=== PATIENT | male | born 1940 | race American Indian/Alaskan Native ===

== ENCOUNTER 2016-12-11 06:31 | Inpatient (IN) | payer MEDICARE ==
[2016-12-11 07:49] LABS: Basophils % (Auto) 0.4 % (0.0-1.8); Eosinophils % (Auto) 1.3 % (0.0-4.3); Hemoglobin 12.6 gm/dl (11.8-15.2); Mean Corpuscular HGB Conc 32 % (32-34); Mean Corpuscular Volume 74 fl (84-94); Platelet Count 139 K/mm3 (140-440); Red Cell Distribution Width 14.7 % (13.2-15.2); White Blood Count 4.6 K/mm3 (4.5-11.0)
[2016-12-11 08:06] LABS: Anion Gap 16 mmol/L; BUN/Creatinine Ratio 26.25; Blood Urea Nitrogen 21 mg/dL (9-20); Calcium 9.3 mg/dL (8.4-10.2); Carbon Dioxide 27 mmol/L (22-30); Chloride 101.1 mmol/L (98-107); Glucose 93 mg/dL (75-100); Potassium 4.2 mmol/L (3.6-5.0); Sodium 140 mmol/L (137-145)
[2016-12-11 08:14] LABS: Mean Corpuscular Hemoglobin 23 pg (28-32)
--- NOTE | 2016-12-11 11:19 | Admit Criteria Form ---
Admission Criteria Documentation: CHEST PAIN Clinical Indications for Admission to Inpatient Care (Place 'X' for any and all applicable criteria): Admission is indicated for chest pain and ANY ONE of the following(1)(2)(3)(4)(5 ): [ ]I. Angina with acute coronary syndrome (Also use Myocardial Infarction or Angina guideline) [ ]II. Hemodynamic instability [ ]III. Angina needing acute intervention as indicated by ALL of the following( 11)(12): [ ]a) Unstable angina is present as indicated by angina that is ANY ONE of the following: [ ]i) New onset [ ]ii) Nocturnal [ ]iii) Prolonged at rest [ ]iv) Progressive [ ]b) Angina warrants acute intervention as indicated by ANY ONE of the following: [ ]i) Recurrent angina (e.g, not responding as previously to treatment) [ ]ii) Angina at rest or with low-level activities despite initial medical therapy [ ]iii) New or presumably new ST-segment depression on ECG [ ]iv) Signs or symptoms of heart failure (eg, dyspnea, pulmonary edema) [ ]v) New or worsening mitral regurgitation [ ]vi) Hemodynamic instability [ ]vii) Dangerous arrhythmia (eg, sustained ventricular tachycardia) [ ]viii) History of percutaneous coronary intervention within 6 months [ ]ix) History of coronary artery bypass graft surgery [ ]x) SHILA risk score of 2 or greater[A] [ ]xi) History of Diabetes(14) [ ]xii) High-risk cardiac ischemia findings on noninvasive testing (e.g, echocardiogram, treadmill testing, nuclear scan) [ ]xiii) Chronic renal insufficiency (ie, estimated GFR less than 60 mL/min/1.732m) [ ]xiv) Left ventricular ejection fraction less than 40% [ ]IV. Evidence of [place] (eg, cardiac biomarkers positive, ST-segment elevation on ECG) also use Myocardial Infarction Criteria Form. [ ]V. Pulmonary edema [ ]. Respiratory distress [ ]VII. Chest pain indicative of serious diagnosis other than coronary artery disease (eg, aortic dissection) [ ]VIII. Contraindications and/or Inappropriate clinical situations for Observational Care in patients with Chest Pain, when ANY ONE of the following is required: [ ]a) Patient with risk factor for pulmonary embolism, acute coronary syndrome and myocardial infarction (18) [ ]b) Patient with Pulmonary embolism require an average LOS of 4.3 days, therefore emergency department observation management is inappropriate 18,23 [ ]c) Painful condition/s in the elderly, have the highest rate of recidivism after emergency department observation management (10.8%) 20,21,22 [ ]d) Elevated cardiac biomarker requires intensive and exhaustive care (19) [X ]IX. General contraindications and/or Inappropriate clinical situations for Observational Care in patients with Chest Pain, when ANY ONE of the following is required: [X ]a) Prediction of prolongation of LOS based on ANY ONE of the following may be considered as a contraindication for observational care 2, 3, 4, 5, 6, 7, 8, 9, 10, 11 [X ]i) Age > 65 yrs. [ ]ii) Patient arriving by ambulance [ ]iii) Patient with high acuity [ ]iv) Patient requiring vital sign monitoring [ ]v) Patient on IV medication [ ]b) Systolic blood pressures 180mmHg 3,12 [ ]c) Patient with altered mental status including delirium and other alteration of consciousness, (3) [ ]d) Patient whose discharge disposition will be to a assisted home or rehabilitation home should not be managed in Emergency Department Observation Unit. CMS rule requires 3 days hospital stay before such placement. 3,13 [ ]e) Patient with failure to thrive due to broad array of etiologies 3,16,17 [ ]f) Inability to ambulate 3,14 Extended stay beyond goal length of stay may be needed for (1)(28): [ ]a) Specific condition diagnosed after evaluation (eg, pulmonary embolism, aortic dissection) [ ]b) Unstable angina [ ]c) Continued suspicion of acute coronary syndrome with inability to complete needed cardiac evaluation (eg, patient clinically unable to undergo stress testing) [ ]d) Myocardial infarction (Contents from ANGINA and CHEST PAIN clinical indications for admission to inpatient care have been integrated in this form) The original [facility] content created by [employer] has been revised. The portions of the content which have been revised are identified through the use of italic text or in bold, and [facility] [employer] has neither reviewed nor approved the modified material. All other unmodified content is copyright [facility]. Please see references footnoted in the original [facility] edition 2016 Admission Criteria Met: Yes
--- NOTE | 2016-12-11 15:14 | Emergency Department Report ---
ED Chest Pain HPI - General Chief Complaint: Chest Pain Stated Complaint: LEFT SIDE PAIN Time Seen by Provider: 12/11/16 15:12 Source: patient Mode of arrival: Ambulatory Limitations: No Limitations - History of Present Illness Initial Comments: Patient states that since his 2 weeks ago he's been having chest pain. He states have a dull ache in the left pectoral area. He also has some pain in the shoulder. The shoulder pain is definitely worse with abduction shoulder. However he states that he has a dull ache in his pectoral area without movement. The chest pain does not radiate to the shoulder or neck. He denies associated symptoms. He denies pleuritic or exertional pain. He states that many years ago he was admitted to the hospital for chest pain. Did not have a cardiac catheterization. He carries no cardiac diagnosis. He has a history of hypothyroidism and dyslipidemia. He did refers some paresthesia or numbness of his left fingers which is not currently present. MD Complaint: chest pain -: week(s) Onset: during rest Pain Location: left chest Pain Radiation: none Severity: moderate Quality: dull Consistency: intermittent Improves With: nothing Worsens With: movement (shoulder pain increases with movement but chest is not sore and doesn't change with movement.) Context: other ( of the spouse) re: denies: nausea, vomting, diaphoresis, dyspnea, sense of impending doom Other Symptoms: denies: cough, fever, syncope Treatments Prior to Arrival: none Aspirin use within the Past 7 Days: (0) No - Related Data Home Medications Medication Instructions Recorded Confirmed Last Taken Acetaminophen 500 mg PO DAILY 12/11/16 12/11/16 Unknown AtorvaSTATin 80 mg PO HS 12/11/16 12/11/16 Unknown Levothyroxine 0.1 mg PO DAILY 12/11/16 12/11/16 Unknown Allergies Allergy/AdvReac Type Severity Reaction Status Date / Time No Known Allergies Allergy Unverified 02/25/14 04:21 SHILA score - Shila Score Age > 65: (1) Yes Aspirin use within the Past 7 Days: (0) No 3 or more CAD Risk Factors: (1) Yes 2 or more Angina events in past 24 hrs: (0) No Known CAD with more than 50% Stenosis: (0) No Elevated Cardiac Markers: (0) No ST Deviation Greater than 0.5mm: (0) No SHILA Score: 2 ED Review of Systems ROS: Stated complaint: LEFT SIDE PAIN Other details as noted in HPI Constitutional: denies: chills, fever Eyes: denies: eye pain, eye discharge, vision change ENT: denies: ear pain, throat pain Respiratory: denies: cough, shortness of breath, wheezing Cardiovascular: chest pain. denies: palpitations Endocrine: no symptoms reported Gastrointestinal: denies: abdominal pain, nausea, diarrhea Genitourinary: denies: urgency, dysuria Musculoskeletal: as per HPI. denies: back pain, joint swelling, arthralgia Skin: denies: rash, lesions Neurological: denies: headache, weakness, paresthesias Psychiatric: denies: anxiety, depression Hematological/Lymphatic: denies: easy bleeding, easy bruising ED Past Medical Hx - Past Medical History Hx Arthritis: Yes Additional medical history: HYPOTHYROID, CHOLESTEROL, - Surgical History Hx Appendectomy: Yes Additional Surgical History: BILATERAL knee surgery, HEMMORHOIDECTOMY, - Social History Smoking Status: Never Smoker Substance Use Type: None - Medications Home Medications: Home Medications Medication Instructions Recorded Confirmed Last Taken Type Acetaminophen 500 mg PO DAILY 12/11/16 12/11/16 Unknown History AtorvaSTATin 80 mg PO HS 12/11/16 12/11/16 Unknown History Levothyroxine 0.1 mg PO DAILY 12/11/16 12/11/16 Unknown History ED Physical Exam - General Limitations: No Limitations General appearance: alert, in no apparent distress - Head Head exam: Present: atraumatic, normocephalic - Eye Eye exam: Present: normal appearance. Absent: scleral icterus - ENT ENT exam: Present: mucous membranes moist - Neck Neck exam: Present: normal inspection. Absent: tenderness, meningismus - Respiratory Respiratory exam: Present: normal lung sounds bilaterally. Absent: respiratory distress, chest wall tenderness - Cardiovascular Cardiovascular Exam: Present: regular rate, normal rhythm. Absent: systolic murmur, diastolic murmur, rubs, gallop - GI/Abdominal GI/Abdominal exam: Present: soft, normal bowel sounds. Absent: distended, tenderness, guarding, rebound, rigid - Rectal Rectal exam: Present: deferred - Extremities Exam Extremities exam: Present: other (hesitation to abduction as well as perhaps some discomfort over the subacromial bursa of the left shoulder. The true shoulder joint is not inflamed. External and internal rotation was essentially normal) - Back Exam Back exam: Present: normal inspection - Neurological Exam Neurological exam: Present: alert, oriented X3 - Psychiatric Psychiatric exam: Present: normal affect, normal mood - Skin Skin exam: Present: warm, dry, intact, normal color. Absent: rash ED Course Vital Signs 12/11/16 06:48 Temperature 98.3 F Pulse Rate 54 L Respiratory 16 Rate Blood Pressure 141/89 Blood Pressure 141/89 [Left] O2 Sat by Pulse 100 Oximetry - Reevaluation(s) Reevaluation #1: Status with Dr. Deng and admitted to the hospitalist service/telemetry. X- rays are pending. 12/11/16 16:03 ED Medical Decision Making - Lab Data Result diagrams: 12/11/16 07:04 12/11/16 07:04 Laboratory Results - last 24 hr 12/11/16 12/11/16 12/11/16 07:04 07:04 09:36 WBC 4.6 RBC 5.40 H Hgb 12.6 Hct 40.0 MCV 74 L MCH 23 L MCHC 32 RDW 14.7 Plt Count 139 L Lymph % (Auto) 33.8 Coke % (Auto) 10.2 H Eos % (Auto) 1.3 Baso % (Auto) 0.4 Lymph # 1.6 Coke # 0.5 Eos # 0.1 Baso # 0.0 Seg Neutrophils % 54.3 Seg Neutrophils # 2.5 Sodium 140 Potassium 4.2 Chloride 101.1 Carbon Dioxide 27 Anion Gap 16 BUN 21 H Creatinine 0.8 Estimated GFR > 60 BUN/Creatinine Ratio 26.25 Glucose 93 Calcium 9.3 Troponin T < 0.010 < 0.010 - EKG Data -: EKG Interpreted by Me EKG shows normal: sinus rhythm, axis, intervals, QRS complexes, ST-T waves Rate: bradycardia - EKG Data Interpretation: nonspecific ST-T wave lucinda - Radiology Data Radiology results: pending Critical care attestation.: If time is entered above; I have spent that time in minutes in the direct care of this critically ill patient, excluding procedure time. ED Disposition Clinical Impression: Chest pain at rest, Bursitis of shoulder, left, Sinus bradycardia Disposition: OP ADMITTED IP TO THIS HOSP Is pt being admited?: Yes Does the pt Need Aspirin: Yes Condition: Stable Instructions: Chest Pain (ED) Referrals: DR MARION [Other] - 3-5 Days Time of Disposition: 16:05
[2016-12-11] MEDS ORDERED: ACETAMINOPHEN PO PRN (16:00)
[2016-12-11] MEDS ORDERED: SODIUM CHLORIDE FLUSH SYRINGE 10 ML IV PRN (16:02)
[2016-12-11] MEDS ORDERED: MORPHINE IV PRN (16:02)
[2016-12-11] MEDS ORDERED: TYLENOL PO PRN (16:23)
--- NOTE | 2016-12-11 16:35 | XRay Report ---
PA and lateral chest: Chest pain There is thoracic spondylosis on the right spine. The lungs are clear. The aorta is slightly tortuous with normal sized heart. No vascular congestion. Impression: No acute findings.
--- NOTE | 2016-12-11 16:38 | XRay Report ---
Left shoulder: Pain. There is some question of a small spur involving the medial articular surface of the humerus head. This area is not optimally visualized. With this exception the bones and joints appear unremarkable. There is good preservation of the subacromial space. Faint calcification may be present in the soft tissues of the proximal shaft on the medial side. There is also some question of calcification at the bicipital groove. No other findings. Impressions: Questionable mild soft tissue calcification unrelated to the rotator cuff. Questionable inferior articular spur of the humerus head.
--- NOTE | 2016-12-11 18:15 | History and Physical Report ---
History of Present Illness Date of examination: 12/11/16 Chief complaint: Left chest and shoulder pain History of present illness: 76-year-old -Indian male with past medical history significant for hyperlipidemia, hypo-thyroidism presented to the emergency department complaining of chest pain for the last 3 weeks. Patient is dilated, 6-8 out of 10 in intensity, with radiation to the left arm, shoulder movement exacerbates the pain, no alleviating factors. No shortness of breath, diaphoresis, palpitation, nausea, vomiting. REVIEW OF SYSTEMS: GENERAL: no weight change, no fatigue, no fever HEAD: no head ache EYES: no blurry vision, no acute visual loss EARS: no hearing loss, no discharge, no earache NOSE: no stuffiness, no sneezing, no discharge MOUTH, THROAT AND NECK: no bleeding gums, no sore throat, no swollen neck CARDIAC: no palpitations, no dyspnea on exertion, no orthopnea, no PND, no edema ,+chest pain RESPIRATORY: no shortness of breath, no wheeze, no cough, no sputum, no hemoptysis, no asthma GI: no decreased appetite, no nausea, no vomiting, no dysphagia, no diarrhea, no constipation, no abdominal pain URINARY: no change in frequency, no urgency, no polyuria, no hematuria, no incontinence MUSCULOSKELETAL: no muscle weakness, left shoulder pain, no joint stiffness NEUROLOGIC: no loss of sensation/numbness, no tingling, no tremors, no weakness/ paralysis HEMATOLOGIC: no anemia, no easy bruising SKIN: no rashes ENDOCRINE: no heat/cold intolerance, no polyuria, no polydipsia, no thyroid problems, no diabetes PSYCHIATRIC: no anxiety, no depression, no suicidal ideations Medications and Allergies Allergies Allergy/AdvReac Type Severity Reaction Status Date / Time No Known Allergies Allergy Unverified 02/25/14 04:21 Home Medications Medication Instructions Recorded Confirmed Last Taken Type Acetaminophen 500 mg PO DAILY 12/11/16 12/11/16 Unknown History AtorvaSTATin 80 mg PO HS 12/11/16 12/11/16 Unknown History Levothyroxine 0.1 mg PO DAILY 12/11/16 12/11/16 Unknown History Active Meds: Active Medications Acetaminophen (Tylenol) 650 mg PO Q6H PRN PRN Reason: Pain, Mild (1-3) Aspirin (Baby Aspirin) 81 mg PO QDAY IDA Atorvastatin Calcium (Lipitor) 80 mg PO QHS IDA Docusate Sodium (Colace) 100 mg PO BID IDA Enoxaparin Sodium (Lovenox) 40 mg SUB-Q DAILY IDA Famotidine (Pepcid) 20 mg PO BID IDA Levothyroxine Sodium (Synthroid) 100 mcg PO DAILY@0600 IDA Morphine Sulfate (Morphine) 2 mg IV Q4H PRN PRN Reason: Chest Pain Sodium Chloride (Sodium Chloride Flush Syringe 10 Ml) 10 ml IV PRN PRN PRN Reason: LINE FLUSH Exam - Physical Exam Narrative exam: Not in cardiopulmonary distress. The patient appeared well nourished and normally developed. Vital signs as documented. Head exam is unremarkable. No scleral icterus . Neck is without jugular venous distension, thyromegaly, or carotid bruits. Lungs are clear to auscultation. Cardiac exam reveals regular rate and Rhythm. First and second heart sounds normal. No murmurs, rubs or gallops. Abdominal exam reveals normal bowel sounds, no masses, no organomegaly and no aortic enlargement. Extremities are nonedematous and both femoral and pedal pulses are normal. [employer]: Alert and oriented 3. No focal weakness. - Constitutional Vitals: Temp Pulse Resp BP Pulse Ox 98.3 F 39 L 19 136/79 100 12/11/16 06:48 12/11/16 17:31 12/11/16 17:31 12/11/16 17:31 12/11/16 17:31 Results - Labs CBC & Chem 7: 12/11/16 07:04 12/11/16 07:04 Labs: Laboratory Last Values WBC 4.6 K/mm3 (4.5-11.0) 12/11/16 07:04 RBC 5.40 M/mm3 (3.65-5.03) H 12/11/16 07:04 Hgb 12.6 gm/dl (11.8-15.2) 12/11/16 07:04 Hct 40.0 % (35.5-45.6) 12/11/16 07:04 MCV 74 fl (84-94) L 12/11/16 07:04 MCH 23 pg (28-32) L 12/11/16 07:04 MCHC 32 % (32-34) 12/11/16 07:04 RDW 14.7 % (13.2-15.2) 12/11/16 07:04 Plt Count 139 K/mm3 (140-440) L 12/11/16 07:04 Lymph % (Auto) 33.8 % (13.4-35.0) 12/11/16 07:04 Nuckolls % (Auto) 10.2 % (0.0-7.3) H 12/11/16 07:04 Eos % (Auto) 1.3 % (0.0-4.3) 12/11/16 07:04 Baso % (Auto) 0.4 % (0.0-1.8) 12/11/16 07:04 Lymph # 1.6 K/mm3 (1.2-5.4) 12/11/16 07:04 Nuckolls # 0.5 K/mm3 (0.0-0.8) 12/11/16 07:04 Eos # 0.1 K/mm3 (0.0-0.4) 12/11/16 07:04 Baso # 0.0 K/mm3 (0.0-0.1) 12/11/16 07:04 Seg Neutrophils % 54.3 % (40.0-70.0) 12/11/16 07:04 Seg Neutrophils # 2.5 K/mm3 (1.8-7.7) 12/11/16 07:04 Sodium 140 mmol/L (137-145) 12/11/16 07:04 Potassium 4.2 mmol/L (3.6-5.0) 12/11/16 07:04 Chloride 101.1 mmol/L (98-107) 12/11/16 07:04 Carbon Dioxide 27 mmol/L (22-30) 12/11/16 07:04 Anion Gap 16 mmol/L 12/11/16 07:04 BUN 21 mg/dL (9-20) H 12/11/16 07:04 Creatinine 0.8 mg/dL (0.8-1.5) 12/11/16 07:04 Estimated GFR > 60 ml/min 12/11/16 07:04 BUN/Creatinine Ratio 26.25 % 12/11/16 07:04 Glucose 93 mg/dL (75-100) 12/11/16 07:04 Calcium 9.3 mg/dL (8.4-10.2) 12/11/16 07:04 Troponin T < 0.010 ng/mL (0.00-0.029) 12/11/16 15:20 - Imaging and Cardiology Chest x-ray: image reviewed (No acute cardiopulmonary abnormalities identified) Assessment and Plan Assessment and plan: Chest pain Left shoulder pain HLD Hypo-thyroidism - Serial cardiac enzymes and EKGs - Thallium stress test tomorrow - Pain control - Continue home medications Prophylaxis - Lovenox Disposition - Admit to telemetry Advance Directives: Yes VTE prophylaxis?: Chemical Plan of care discussed with patient/family: Yes
[2016-12-11] MEDS: PEPCID PO SCH (21:48)
[2016-12-11 21:58] LABS: Creatine Kinase MB 2.4 ng/mL (0.0-4.0)
[2016-12-11] MEDS: COLACE PO SCH (21:58)
[2016-12-11 22:00] LABS: Creatine Kinase 184 units/L (55-170)
[2016-12-11] MEDS ORDERED: NON-FORMULARY (Atorvastatin 80 MG) PO SCH (22:00)
[2016-12-12] MEDS ORDERED: SYNTHROID PO SCH (06:00)
[2016-12-12] MEDS ORDERED: LEXISCAN IV ONE ×2 (08:14→08:31)
[2016-12-12] MEDS ORDERED: LOVENOX SUB-Q SCH (10:00)
[2016-12-12] MEDS ORDERED: LEVOTHYROXINE 0.1 MG PO SCH (10:00)
[2016-12-12] MEDS ORDERED: BABY ASPIRIN PO SCH (10:00)
--- NOTE | 2016-12-12 10:57 | Progress Note ---
Hospitalist Physical - Constitutional Vitals: Temp Pulse Resp BP Pulse Ox 97.8 F 43 L 20 115/66 93 12/12/16 05:12 12/12/16 05:12 12/12/16 05:12 12/12/16 05:12 12/12/16 05:12 Results - Labs CBC & Chem 7: 12/11/16 07:04 12/11/16 07:04 Labs: Laboratory Last Values WBC 4.6 K/mm3 (4.5-11.0) 12/11/16 07:04 RBC 5.40 M/mm3 (3.65-5.03) H 12/11/16 07:04 Hgb 12.6 gm/dl (11.8-15.2) 12/11/16 07:04 Hct 40.0 % (35.5-45.6) 12/11/16 07:04 MCV 74 fl (84-94) L 12/11/16 07:04 MCH 23 pg (28-32) L 12/11/16 07:04 MCHC 32 % (32-34) 12/11/16 07:04 RDW 14.7 % (13.2-15.2) 12/11/16 07:04 Plt Count 139 K/mm3 (140-440) L 12/11/16 07:04 Lymph % (Auto) 33.8 % (13.4-35.0) 12/11/16 07:04 Mower % (Auto) 10.2 % (0.0-7.3) H 12/11/16 07:04 Eos % (Auto) 1.3 % (0.0-4.3) 12/11/16 07:04 Baso % (Auto) 0.4 % (0.0-1.8) 12/11/16 07:04 Lymph # 1.6 K/mm3 (1.2-5.4) 12/11/16 07:04 Mower # 0.5 K/mm3 (0.0-0.8) 12/11/16 07:04 Eos # 0.1 K/mm3 (0.0-0.4) 12/11/16 07:04 Baso # 0.0 K/mm3 (0.0-0.1) 12/11/16 07:04 Seg Neutrophils % 54.3 % (40.0-70.0) 12/11/16 07:04 Seg Neutrophils # 2.5 K/mm3 (1.8-7.7) 12/11/16 07:04 Sodium 140 mmol/L (137-145) 12/11/16 07:04 Potassium 4.2 mmol/L (3.6-5.0) 12/11/16 07:04 Chloride 101.1 mmol/L (98-107) 12/11/16 07:04 Carbon Dioxide 27 mmol/L (22-30) 12/11/16 07:04 Anion Gap 16 mmol/L 12/11/16 07:04 BUN 21 mg/dL (9-20) H 12/11/16 07:04 Creatinine 0.8 mg/dL (0.8-1.5) 12/11/16 07:04 Estimated GFR > 60 ml/min 12/11/16 07:04 BUN/Creatinine Ratio 26.25 % 12/11/16 07:04 Glucose 93 mg/dL (75-100) 12/11/16 07:04 Calcium 9.3 mg/dL (8.4-10.2) 12/11/16 07:04 Total Creatine Kinase 184 units/L (55-170) H 12/11/16 21:08 CK-MB (CK-2) 2.4 ng/mL (0.0-4.0) 12/11/16 21:08 CK-MB (CK-2) Rel Index 1.3 (0-4) 12/11/16 21:08 Troponin T < 0.010 ng/mL (0.00-0.029) 12/11/16 21:08 Triglycerides 59 mg/dL (2-149) 12/11/16 15:20 Cholesterol 161 mg/dL (50-199) 12/11/16 15:20 LDL Cholesterol Direct 74 mg/dL (50-130) 12/11/16 15:20 HDL Cholesterol 76 mg/dL (40-59) H 12/11/16 15:20 Cholesterol/HDL Ratio 2.11 % 12/11/16 15:20
[2016-12-12 12:19] VITALS: BP 117/70
--- NOTE | 2016-12-12 12:23 | Discharge Summary ---
Providers - Providers Date of Admission: 12/11/16 15:53 Date of discharge: 12/12/16 Attending physician: ZIA JORDAN 12/11/16 Consult to Cardiac Rehabilitation [CONS] Routine Reason For Exam: Phase I Primary care physician: MASTER PLANNER Hospitalization Reason for admission: left-sided chest pain and left shoulder pain Condition: Stable Pertinent studies: Chest x-ray; normal study X-ray shoulder left; no acute abnormality noted mild soft tissue calcification unrelated to the rotator cuff Nuclear stress test; negative for reversible ischemia, normal left ventricle function Hospital course: 76-year-old -[place]aur[place] male patient with significant past medical history of hypothyroidism dyslipidemia follows with V8 presented to the emergency room with the left-sided chest pain and shoulder pain intermittent for the last 3 weeks patient was initially evaluated and admitted to the hospital symptomatically managed and subsequently underwent nuclear stress test which was negative for reversible ischemia and preserved left ventricle function Patient also had chest x-ray and left shoulder x-ray which were negative for acute abnormalities Patient was symptomatically managed symptoms significantly improved. today patient is comfortable in bed alert awake oriented 3 not in acute distress Denies chest pain or shortness of breath Vital signs are stable, [id number] evaluation physical examination done by me prior to discharge is unremarkable as detailed below Patient is hemodynamically and clinically stable for discharge and does not need any further acute inpatient care at this time If patient should get recurrent chest pain, he may need outpatient evaluation by mophead trimmer and wrapper at the [facility] If you have chest pain or shortness of breath contact M.D. or go to emergency room Patient verbalized understanding patient's left-sided chest pain maybe noncardiac due to gastroesophageal reflux disease Prescription for Pepcid was given to the patient at the time of discharge Disposition: DISCHARGED TO HOME OR SELFCARE Time spent for discharge: 31 min Core Measure Documentation - Palliative Care Palliative Care/ Comfort Measures: Not Applicable - Core Measures Any of the following diagnoses?: none Exam - Constitutional Vitals: Temp Pulse Resp BP Pulse Ox 97.8 F 62 20 117/70 93 12/12/16 05:12 12/12/16 10:01 12/12/16 05:12 12/12/16 10:01 12/12/16 05:12 General appearance: Present: no acute distress, well-nourished - EENT Eyes: Present: PERRL, EOM intact - Neck Neck: Present: supple, normal ROM - Respiratory Respiratory effort: normal Respiratory: negative: rales, rhonchi, wheezing - Cardiovascular Rhythm: regular Heart Sounds: Present: S1 & S2 - Extremities Extremities: no ischemia, pulses intact, pulses symmetrical Peripheral Pulses: within normal limits - Abdominal General gastrointestinal: Present: soft, non-tender, non-distended, normal bowel sounds - Integumentary Integumentary: Present: clear, warm - Musculoskeletal Musculoskeletal: strength equal bilaterally - Psychiatric Psychiatric: appropriate mood/affect, cooperative - Neurologic Neurologic: CNII-XII intact, moves all extremities Plan Activity: no restrictions Diet: low cholesterol, low salt Additional Instructions: f[facility] To have recurrent chest pain, need to see mophead trimmer and wrapper at the [place] [facility] for further evaluation or go to emergency room Follow up with: DR MARION [Other] - 3-5 Days Prescriptions: Famotidine [Pepcid] 20 mg PO BID #20 tablet
[2016-12-12] MEDS: PEPCID PO SCH (12:31)
[2016-12-12] MEDS: COLACE PO SCH (12:31)
--- NOTE | 2016-12-12 22:35 | Treadmill Report ---
REFERRING PHYSICIAN: Dr. Deng PROTOCOL: The patient was brought to the stress lab in a postabsorptive state, given 10 mCi of technetium 99m at rest. The patient underwent rest imaging. The patient underwent Lexiscan stress test per standard protocol. At peak stress, the patient was given 26 mCi of technetium 99m. Shortly thereafter, the patient underwent stress imaging. Raw imaging reveals mild GI artifact, no significant motion artifact. SPECT imaging is examined carefully in the horizontal long axis, vertical long axis and short axis views. There is normal homogenous uptake of radioisotope in all reported segments. No evidence of a significant fixed or reversible perfusion defects suggestive of prior infarction or ischemia. Gated wall motion reveals normal systolic thickening, calculated ejection fraction of 55%, no TID. CONCLUSIONS: 1. Normal myocardial perfusion scan without evidence of active ischemia or prior infarction. 2. Normal left ventricular systolic performance without evidence of transient ischemic dilatation or stress-induced segmental wall motion abnormalities. 3. Normal Lexiscan stress test without evidence of diagnostic ST changes, arrhythmias or chest pain during stress or recovery. JOB# [id number] SBM/NTS
== END 2016-12-12 15:05 | disposition home or self-care (01) | DRG 392 ==
LOC: ED 06:31 → 4A 15:53
PROVIDERS: ADMIT Internal Medicine; ATTEND Internal Medicine
DX: K21.9 Gastro-esophageal reflux disease without esophagitis (principal); M19.90 Unspecified osteoarthritis, unspecified site; E78.5 Hyperlipidemia, unspecified; E03.9 Hypothyroidism, unspecified
CPT/HCPCS: 36415; 71020; 78452; 80048; 80061; 82550; 82553; 84484; 85025; 93005; 93010; 93017; A9270-GY; A9502; J1650; J2785

== ENCOUNTER 2020-02-29 21:43 | Emergency (ER) | payer OTHER, MEDICARE ==
[2020-02-29] MEDS ORDERED: ACETAMINOPHEN 325 MG TAB ONE (22:40)
[2020-02-29] MEDS ORDERED: ACETAMINOPHEN 325 MG TAB PO ONE (22:59)
[2020-03-01] MEDS ORDERED: IBUPROFEN 600 MG TAB PO ONE (00:57)
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
[2020-03-01 05:41] VITALS: BP 156/64
== END 2020-03-01 05:41 | disposition home or self-care (01) ==
LOC: ED 21:43
DX: M62.838 Other muscle spasm (principal); Z79.899 Other long term (current) drug therapy; V49.49XA Driver injured in collision with other motor vehicles in traffic accident, initial encounter; Y93.89 Activity, other specified; Y92.488 Other paved roadways as the place of occurrence of the external cause; Y99.8 Other external cause status
CPT/HCPCS: 70450; 72125; 72131; 99283